=== PATIENT | female | born 1960 | race Caucasian/White ===

== ENCOUNTER 2020-01-13 18:48 | Emergency (ER) | payer OTHER, SELFPAY ==
[2020-01-13 18:50] VITALS: BP 124/68; PULSE 104; RESP 19; O2SAT 99
--- NOTE | 2020-01-13 19:00 | DI.RAD.S_ITS ---
PROCEDURE: XR CHEST 1V INDICATIONS: chest pain TECHNIQUE: One view of the chest was acquired. COMPARISON: None. FINDINGS: Surgical changes and devices: None. Lungs and pleura: Lungs are clear. No pleural effusions or pneumothorax. Mediastinum: Mediastinal contours appear normal. Heart size is normal. Bones and chest wall: No suspicious bony lesions. Overlying soft tissues appear unremarkable. IMPRESSION: No acute cardiopulmonary disease process. Dictated by: Hlaey Barclay MD, PhD on 01/13/2020 at 19:20 Approved by: Haley Barclay MD, PhD on 01/13/2020 at 19:20
[2020-01-13 19:08] LABS: Add Manual Diff / Slide Review NO; Basophils Absolute Auto 0 /uL (0-100); Basophils Percent Auto 0.3 % (0-2); Eosinophils Absolute Auto 0 /uL (0-450); Eosinophils Percent Auto 0.1 % (2-4); Hematocrit 41.1 % (36-46); Hemoglobin 13.8 g/dL (12.0-16.0); Lymphocytes Absolute Auto 1500 /uL (1100-4500); Mean Corpuscular HGB Conc 33.7 % (30-36); Mean Corpuscular Hemoglobin 30.2 PG (26-34); Mean Corpuscular Volume 89.7 fL (80-100); Monocytes Absolute Auto 400 /uL (0-900); Monocytes Percent Auto 7.9 % (3-14); Neutrophils Absolute Auto 2700 /uL (1500-7000); Neutrophils Percent Auto 58.7 % (50-75); Platelet Count 306 X10^3/uL (150-400); Red Blood Cell Count 4.58 X10^6/uL (4.0-5.2); White Blood Cell Count 4.5 X10^3/uL (4.5-11.0)
--- NOTE | 2020-01-13 19:10 | ED_ITS ---
HPI - Chest Pain <PREET Linares - Last Filed: 01/13/20 21:03> General Chief Complaint: Chest Pain Stated Complaint: chest pain Time Seen by Provider: 01/13/20 18:52 History of Present Illness HPI narrative: 59yo female with a history of hypoglycemic episodes (nondiabetic), presents emergency department complaining of a dull aching upper back pain that radiates to her substernal chest, slightly greater on the left side. She states the pain is a constant 4/10 that started 3 days ago, denies any aggravating or alleviating factors. She has had clear rhinorrhea for the past week but states that she has allergies. She denies any other symptoms such as fever, chills, shortness of breath, cough, abdominal pain, nausea, vomiting, diarrhea, trauma to the area, or any other concerns. Patient denies any history of PE, hormone use, recent long trips, cardiac issues, or any other concerns. Related Data Allergies Allergy/AdvReac Type Severity Reaction Status Date / Time hydrocodone Allergy Verified 01/13/20 19:14 Review of Systems <PREET Linares - Last Filed: 01/13/20 21:03> Review of Systems Narrative: REVIEW OF SYSTEMS: GENERAL: Denies fever or chills. HENT: No head trauma, hearing loss or sore throat. EYES: No vision changes. CARDIOVASCULAR: Complains of chest pain, see HPI. RESPIRATORY: No shortness of breath. GASTROINTESTINAL: No nausea, vomiting, diarrhea, or constipation. GENITOURINARY: No flank pain or dysuria. MUSCULOSKELETAL: No pain, weakness, or deformities. INTEGUMENTARY: No rash, lesions, or pruritus. NEURO: No numbness, tingling, memory loss, or confusion. PSYCH: No behavior or mood changes. Patient History <PREET Linares - Last Filed: 01/13/20 21:03> Medical History No significant medical problems (Acute) Social History Smoking Status: Never smoker Smoking Status: Never smoker Exam <PREET Linares - Last Filed: 01/13/20 21:03> Initial Vital Signs Initial Vital Signs: Vital Signs Pulse Rate 104 H 01/13/20 18:50 Respiratory Rate 19 01/13/20 18:50 Blood Pressure 124/68 01/13/20 18:50 Pulse Oximetry 99 01/13/20 18:50 PHYSICAL EXAMINATION: GENERAL: Well groomed, alert, and cooperative. Answers questions promptly and appropriately. Vital signs noted. HENT: Normocephalic, atraumatic. Ear canals patent. Oral mucosa is pink and moist. EYES: Conjunctiva pink, sclera white, no periorbital swelling. CHEST: Normal to inspection and without deformities. Increased pain with palpation of left lower costal sternal border. CARDIOVASCULAR: S1 and S2 sounds normal. Regular rate and rhythm, no murmurs, clicks, or bruits. No pedal edema. RESPIRATORY: Normal respiratory rate, trachea midline, airway patent. No stridor, nasal flaring or accessory muscle use. Lungs are clear in all pedro without wheeze, rhonchi, or crackles. GASTROINTESTINAL: Bowel sounds normoactive. Abdomen is soft and non-tender. No organomegaly. MUSCULOSKELETAL: No tenderness with palpation of the back. Normal gait and coordination. Equal tone and mass bilaterally. GI: Abdomen soft and nontender EXTREMITIES: CMS intact. Moves all extremities. SKIN: Warm, dry, soft, appropriate color for ethnicity. No lesions, rashes, or wounds. NEURO: Alert and Oriented X 3. Good coordination. No ataxia, or sensory deficits, or cognitive issues. PSYCH: Appropriate affect and mood. <Jojo Mancia MD - Last Filed: 01/13/20 21:26> Initial Vital Signs Initial Vital Signs: Vital Signs Pulse Rate 104 H 01/13/20 18:50 Respiratory Rate 19 01/13/20 18:50 Blood Pressure 124/68 01/13/20 18:50 Pulse Oximetry 99 01/13/20 18:50 Scores <PREET Linares - Last Filed: 01/13/20 21:03> HEART Score Heart Score history: Slightly Suspicious Heart Score EKG: Normal Heart Score Age: 45-64 years old Heart Score risk factors: No known risk factors Heart Score troponin: < or = to normal limit Heart Score Total: 1 PERC Score Age greater than or equal to 50 years: Yes Heart rate greater than or equal to 100 bpm: No Room Air O2 Sat less than 95%: No Unilateral leg swelling: No Recent trauma or surgery: No Hemoptysis: No Prior PE or DVT: No Hormone Use: No Total PERC Score: 1 Wells' Criteria for PE Clinical signs and symptoms of DVT: No PE is #1 Dx or equally likely: No Heart rate > 100: No Immobilization at least 3 days or surg in previous 4 weeks: No History of PE or DVT: No Hemoptysis: No Malignancy w/Treatment within 6 months or palliative: No Wells' PE Score total: 0 Course <PREET Linares - Last Filed: 01/13/20 21:03> Course Course Narrative: Patient was given a GI cocktail which did not change symptoms. Orders Ordered: ED Orders 01/13/20 19:00 XR chest 1V Stat Complete Blood Count AUTO DIFF Stat Comprehensive Metabolic Panel Stat Lipase Stat Partial Thromboplastin Time Stat Prothrombin Time INR Stat Troponin & CK Cardiac Panel Stat EKG-12 Lead Stat 01/13/20 20:05 Influenza A & B (PCR) Stat Discontinued Medications Al Hydrox/Mg Hydrox/Simethicone 20 ml/ Lidocaine HCl 15 ml 0 ml PO NOW ONE Stop: 01/13/20 19:45 Last Admin: 01/13/20 20:00 Dose: 35 ml Documented by: ERIN Consultations Consultation #1: Patient staffed with Dr. Mancia, discussed testing, results, discharge plans. Vital Signs Vital signs: Vital Signs - 8 hr 01/13/20 18:50 01/13/20 20:22 01/13/20 20:51 Pulse Rate 104 H 96 H 96 H Respiratory Rate 19 99 H 15 Blood Pressure 124/68 116/60 Blood Pressure [Left Arm] 112/63 Pulse Oximetry 99 16 L 100 <Jojo Mancia MD - Last Filed: 01/13/20 21:26> Orders Ordered: ED Orders 01/13/20 19:00 XR chest 1V Stat Complete Blood Count AUTO DIFF Stat Comprehensive Metabolic Panel Stat Lipase Stat Partial Thromboplastin Time Stat Prothrombin Time INR Stat Troponin & CK Cardiac Panel Stat EKG-12 Lead Stat 01/13/20 20:05 Influenza A & B (PCR) Stat Discontinued Medications Al Hydrox/Mg Hydrox/Simethicone 20 ml/ Lidocaine HCl 15 ml 0 ml PO NOW ONE Stop: 01/13/20 19:45 Last Admin: 01/13/20 20:00 Dose: 35 ml Documented by: ERIN Vital Signs Vital signs: Vital Signs - 8 hr 01/13/20 18:50 01/13/20 20:22 01/13/20 20:51 Pulse Rate 104 H 96 H 96 H Respiratory Rate 19 99 H 15 Blood Pressure 124/68 116/60 Blood Pressure [Left Arm] 112/63 Pulse Oximetry 99 16 L 100 MDM - Chest Pain <Lauren QureshiPREET - Last Filed: 01/13/20 21:03> Medical Records Data Attestation: I reviewed the patient's medical records. Lab Data Attestation: I reviewed the patient's lab results. Result diagrams: 01/13/20 19:00 01/13/20 19:00 Labs: Lab Results 01/13/20 01/13/20 01/13/20 Range/Units 19:00 19:00 19:00 WBC 4.5 (4.5-11.0) X10^3/uL RBC 4.58 (4.0-5.2) X10^6/uL Hgb 13.8 (12.0-16.0) g/dL Hct 41.1 (36-46) % MCV 89.7 (80-100) fL MCH 30.2 (26-34) PG MCHC 33.7 (30-36) % RDW 13.0 (11.6-14.8) % Plt Count 306 (150-400) X10^3/uL Neut % (Auto) 58.7 (50-75) % Lymph % (Auto) 33.0 (25-40) % Oliver % (Auto) 7.9 (3-14) % Eos % (Auto) 0.1 L (2-4) % Baso % (Auto) 0.3 (0-2) % Neut # (Auto) 2700 (3975-1998) /uL Lymph # (Auto) 1500 (4561-2833) /uL Oliver # (Auto) 400 (0-900) /uL Eos # (Auto) 0 (0-450) /uL Baso # (Auto) 0 (0-100) /uL PT 10.9 (10.1-12.7) SECONDS INR 1.0 (0.9-1.3) APTT 31 (26.4-36.2) SECONDS Sodium 140 (137-145) mmol/L Potassium 4.0 (3.4-5.1) mmol/L Chloride 108 H (98-107) mmol/L Carbon Dioxide 23 (22-32) mmol/L BUN 16 (7-17) mg/dL Creatinine 1.10 H (0.52-1.04) mg/dL Estimated GFR 51.0 L (>60) mL/min BUN/Creatinine Ratio 14.5 (6-22) Glucose 99 (70-100) mg/dL Calcium 9.7 (8.4-10.2) mg/dL Total Bilirubin 0.5 (0.2-1.3) mg/dL AST 28 (14-36) IU/L ALT 22 (<35) IU/L Alkaline Phosphatase 113 (38-126) U/L Total Creatine Kinase 87 (30-135) U/L CK-MB (CK-2) TNP CK-MB (CK-2) Rel Index TNP Troponin I < 0.012 (0.01-0.034) ng/mL Total Protein 7.7 (6.3-8.2) g/dL Albumin 4.7 (3.5-5.0) g/dL Globulin 3.0 (1.7-4.1) g/dL Albumin/Globulin Ratio 1.6 (1.0-2.8) Lipase 185 (23-300) U/L Influenza A (RT-PCR) (NEGATIVE) Influenza B (RT-PCR) (NEGATIVE) 01/13/20 Range/Units 20:05 WBC (4.5-11.0) X10^3/uL RBC (4.0-5.2) X10^6/uL Hgb (12.0-16.0) g/dL Hct (36-46) % MCV (80-100) fL MCH (26-34) PG MCHC (30-36) % RDW (11.6-14.8) % Plt Count (150-400) X10^3/uL Neut % (Auto) (50-75) % Lymph % (Auto) (25-40) % Oliver % (Auto) (3-14) % Eos % (Auto) (2-4) % Baso % (Auto) (0-2) % Neut # (Auto) (3302-5415) /uL Lymph # (Auto) (7191-6145) /uL Oliver # (Auto) (0-900) /uL Eos # (Auto) (0-450) /uL Baso # (Auto) (0-100) /uL PT (10.1-12.7) SECONDS INR (0.9-1.3) APTT (26.4-36.2) SECONDS Sodium (137-145) mmol/L Potassium (3.4-5.1) mmol/L Chloride (98-107) mmol/L Carbon Dioxide (22-32) mmol/L BUN (7-17) mg/dL Creatinine (0.52-1.04) mg/dL Estimated GFR (>60) mL/min BUN/Creatinine Ratio (6-22) Glucose (70-100) mg/dL Calcium (8.4-10.2) mg/dL Total Bilirubin (0.2-1.3) mg/dL AST (14-36) IU/L ALT (<35) IU/L Alkaline Phosphatase (38-126) U/L Total Creatine Kinase (30-135) U/L CK-MB (CK-2) CK-MB (CK-2) Rel Index Troponin I (0.01-0.034) ng/mL Total Protein (6.3-8.2) g/dL Albumin (3.5-5.0) g/dL Globulin (1.7-4.1) g/dL Albumin/Globulin Ratio (1.0-2.8) Lipase (23-300) U/L Influenza A (RT-PCR) Flu a negative (NEGATIVE) Influenza B (RT-PCR) Flu b negative (NEGATIVE) Imaging Data Chest x-ray: Radiologist's Impression: [address] [address] XRay Report Signed Patient: Davida Kilpatrick LMR#: [id number] : 2Acct:[id number] Age/Sex: 59 / FDate of Service: 01/13/20 Loc: ED Accession Number: [id number] Procedure: XR chest 1V Ordering Provider: Lauren Qureshi PROCEDURE: XR CHEST 1V INDICATIONS: chest pain TECHNIQUE: One view of the chest was acquired. COMPARISON: None. FINDINGS: Surgical changes and devices: None. Lungs and pleura: Lungs are clear. No pleural effusions or pneumothorax. Mediastinum: Mediastinal contours appear normal. Heart size is normal. Bones and chest wall: No suspicious bony lesions. Overlying soft tissues appear unremarkable. IMPRESSION: No acute cardiopulmonary disease process. Dictated by: Haley Barclay MD, PhD on 01/13/2020 at 19:20 Approved by: Haley Barclay MD, PhD on 01/13/2020 at 19:20 ECG Data Interpretation: Normal sinus rhythm, rate 97, CT interval 170, QTC 457. No ST elevation or ST depression. No T-wave abnormality. No ectopy. EKG also viewed Dr. Mancia. [facility] Narrative Medical decision making narrative: 59-year-old female presents emergency department for back and chest pain over the past 3 days. Less likely cardiac etiology due to constant nature of pain, worsening pain with palpation of left sternal costal border, heart score of 1, lower risk factors, and no associated cardiac symptoms such as syncope or shortness of breath. Less likely pulmonary etiology due to negative chest x-ray and lack of shortness of breath or cough. However, patient was tested for COVID-19 due to prolonged duration of rhinorrhea, pain, and concerns. Less likely aortic aneurysm as patient is hemodynamically stable with low risk factors. Less likely PE due to lack of shortness of breath, tachycardia, and tachypnea, patient has low risk factors for PE, Wells criteria. Less likely GERD, symptoms are not alleviated by GI cocktail. Differential also includes costochondritis due to increasing pain with palpation of left sternal costal border, however, this does not explain back pain. Unless, pain is musculoskeletal in nature and patient developed back pain which then changed her sitting and moving positions cause sternal border pain. Differential also includes anxiety as patient does states she gets ?rashes of adrenaline on her chest ?does report increased anxiety. Patient was given very strict return precautions for new or worsening symptoms. She was encouraged to follow up with her primary care provider in the next few days. <Jojo Mancia MD - Last Filed: 01/13/20 21:26> Lab Data Labs: Lab Results 01/13/20 01/13/20 01/13/20 Range/Units 19:00 19:00 19:00 WBC 4.5 (4.5-11.0) X10^3/uL RBC 4.58 (4.0-5.2) X10^6/uL Hgb 13.8 (12.0-16.0) g/dL Hct 41.1 (36-46) % MCV 89.7 (80-100) fL MCH 30.2 (26-34) PG MCHC 33.7 (30-36) % RDW 13.0 (11.6-14.8) % Plt Count 306 (150-400) X10^3/uL Neut % (Auto) 58.7 (50-75) % Lymph % (Auto) 33.0 (25-40) % Oliver % (Auto) 7.9 (3-14) % Eos % (Auto) 0.1 L (2-4) % Baso % (Auto) 0.3 (0-2) % Neut # (Auto) 2700 (8503-3537) /uL Lymph # (Auto) 1500 (4426-8788) /uL Oliver # (Auto) 400 (0-900) /uL Eos # (Auto) 0 (0-450) /uL Baso # (Auto) 0 (0-100) /uL PT 10.9 (10.1-12.7) SECONDS INR 1.0 (0.9-1.3) APTT 31 (26.4-36.2) SECONDS Sodium 140 (137-145) mmol/L Potassium 4.0 (3.4-5.1) mmol/L Chloride 108 H (98-107) mmol/L Carbon Dioxide 23 (22-32) mmol/L BUN 16 (7-17) mg/dL Creatinine 1.10 H (0.52-1.04) mg/dL Estimated GFR 51.0 L (>60) mL/min BUN/Creatinine Ratio 14.5 (6-22) Glucose 99 (70-100) mg/dL Calcium 9.7 (8.4-10.2) mg/dL Total Bilirubin 0.5 (0.2-1.3) mg/dL AST 28 (14-36) IU/L ALT 22 (<35) IU/L Alkaline Phosphatase 113 (38-126) U/L Total Creatine Kinase 87 (30-135) U/L CK-MB (CK-2) TNP CK-MB (CK-2) Rel Index TNP Troponin I < 0.012 (0.01-0.034) ng/mL Total Protein 7.7 (6.3-8.2) g/dL Albumin 4.7 (3.5-5.0) g/dL Globulin 3.0 (1.7-4.1) g/dL Albumin/Globulin Ratio 1.6 (1.0-2.8) Lipase 185 (23-300) U/L Influenza A (RT-PCR) (NEGATIVE) Influenza B (RT-PCR) (NEGATIVE) 01/13/20 Range/Units 20:05 WBC (4.5-11.0) X10^3/uL RBC (4.0-5.2) X10^6/uL Hgb (12.0-16.0) g/dL Hct (36-46) % MCV (80-100) fL MCH (26-34) PG MCHC (30-36) % RDW (11.6-14.8) % Plt Count (150-400) X10^3/uL Neut % (Auto) (50-75) % Lymph % (Auto) (25-40) % Oliver % (Auto) (3-14) % Eos % (Auto) (2-4) % Baso % (Auto) (0-2) % Neut # (Auto) (1825-7118) /uL Lymph # (Auto) (9118-3226) /uL Oliver # (Auto) (0-900) /uL Eos # (Auto) (0-450) /uL Baso # (Auto) (0-100) /uL PT (10.1-12.7) SECONDS INR (0.9-1.3) APTT (26.4-36.2) SECONDS Sodium (137-145) mmol/L Potassium (3.4-5.1) mmol/L Chloride (98-107) mmol/L Carbon Dioxide (22-32) mmol/L BUN (7-17) mg/dL Creatinine (0.52-1.04) mg/dL Estimated GFR (>60) mL/min BUN/Creatinine Ratio (6-22) Glucose (70-100) mg/dL Calcium (8.4-10.2) mg/dL Total Bilirubin (0.2-1.3) mg/dL AST (14-36) IU/L ALT (<35) IU/L Alkaline Phosphatase (38-126) U/L Total Creatine Kinase (30-135) U/L CK-MB (CK-2) CK-MB (CK-2) Rel Index Troponin I (0.01-0.034) ng/mL Total Protein (6.3-8.2) g/dL Albumin (3.5-5.0) g/dL Globulin (1.7-4.1) g/dL Albumin/Globulin Ratio (1.0-2.8) Lipase (23-300) U/L Influenza A (RT-PCR) Flu a negative (NEGATIVE) Influenza B (RT-PCR) Flu b negative (NEGATIVE) Discharge Plan Departure Patient Disposition: Home Clinical Impression: Atypical chest pain Discharge Date/Time: 01/13/20 20:52 Instructions: DI for Atypical Chest Pain Activity Restrictions/Additional Instructions: Thank you for entrusting me with your care today. As discussed, your labs, x-r ay, and EKG are non-remarkable. I am unsure the exact cause of your pain. You have been tested for COVID-19. This test may take 2-5 days for results to return, we will call you with these results. Please remain in quarantine with self isolation at home for 3 days after your symptoms have completely resolved. Drink lots of fluids, take Tylenol for fever, get extra rest, clean all surfaces, cover your cough, wash your hands frequently, and avoid sharing any personal items. If you need to seek medical care, please call the clinic or the emergency department before your arrival. Is possible that your pain may be caused by a inflammation around your ribs, I suggest taking ibuprofen for the next few days as this may help. Please call your primary care provider tomorrow to schedule a follow-up appointment. Return emergency department immediately if you develop worsening symptoms such as changes in chest pain, shortness of breath, severe headaches, syncope, or any other concerns. Referrals: Bernardino Hermosillo MD [Primary Care Provider] - <Jojo Mancia MD - Last Filed: 01/13/20 21:26> Cosign ED Attending Armandoature Attestation: I was immediately available in the department for consultation throughout this patient's visit. I agree with documentation as above. Jojo Mancia MD
[2020-01-13 19:18] LABS: Alanine Aminotransferase 22 IU/L (<35); Albumin 4.7 g/dL (3.5-5.0); Albumin Globulin Ratio 1.6 (1.0-2.8); Alkaline Phosphatase 113 U/L (38-126); Aspartate Aminotransferase 28 IU/L (14-36); BUN Creatinine Ratio 14.5 (6-22); Bilirubin Total 0.5 mg/dL (0.2-1.3); Blood Urea Nitrogen 16 mg/dL (7-17); Calcium 9.7 mg/dL (8.4-10.2); Carbon Dioxide 23 mmol/L (22-32); Chloride 108 mmol/L (98-107); Creatine Kinase 87 U/L (30-135); Glucose 99 mg/dL (70-100); HEMOLYSIS < 15 (0-50); Lipase 185 U/L (23-300); Prothrombin Time 10.9 SECONDS (10.1-12.7); Sodium 140 mmol/L (137-145); Total Protein 7.7 g/dL (6.3-8.2)
[2020-01-13 19:20] LABS: PTT Partial Thromboplastin Tim 31 SECONDS (26.4-36.2)
[2020-01-13 19:29] LABS: Troponin I < 0.012 ng/mL (0.01-0.034)
[2020-01-13] MEDS: MAG HYDROX/ALUMINUM/SIMETH SUS 20 ML, LIDOCAINE VISCOUS 2% 15 ML PO (20:00)
[2020-01-13 20:22] VITALS: BP 112/63; PULSE 96; RESP 99; O2SAT 16
[2020-01-13 20:27] LABS: Influenza A - CEPHEID Flu A NEGATIVE (NEGATIVE); Influenza B - CEPHEID Flu B NEGATIVE (NEGATIVE)
[2020-01-13 20:51] VITALS: BP 116/60; PULSE 96; RESP 15; O2SAT 100
[2020-01-18 09:21] LABS: COVID19 Sendout Not Detected (Not Detected)
--- NOTE | 2020-01-18 11:28 | PC.NURSE ---
pt called regarding covid 19 result, not detected.
== END 2020-01-13 20:52 | disposition home or self-care (01) ==
PROVIDERS: Emergency Provider Nurse Practitioner; PCP Internal Medicine
DX: R07.89 Other chest pain (principal); R68.89 Other general symptoms and signs
CPT/HCPCS: 36415; 71045; 80053; 82550; 83690; 84484; 85025; 85610; 85730; 87502; 87635; 93005; 99284